=== PATIENT | male | born 1975 | race African-American/Black ===

== ENCOUNTER 2016-05-13 18:42 | Emergency (ER) | payer OTHER ==
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
[~2016-05-13 18:42] MED LIST: ACID REFLUX PO; CIPRO PO; DIAZEPAM PO; DOXYCYCLINE HY100 M1 PO; FLEXERIL; KLONOPIN1 MG PO; LORTAB 10-5001 EACH; LORTAB 10/500 T1 TAB PO; METHADONE; METHADONE HCL10 MG PO; NEURONTIN PO; NO MEDICATIONS; NORFLEX100 MG PO; PERCOCET 10/3251 TAB; PHENERGAN/CODEIN5 ML PO; PRILOSEC20 M1 PO; PROTEXIN1 KIT MM; SOMA PO; TYLENOL #3 PO; VIBRAMYCIN100 M1 PO; VOLTAREN75 MG PO; ZITHROMAX PO
== END 2016-05-13 19:30 | disposition home or self-care (01) ==
LOC: SED 18:42
DX: S16.1XXA Strain of muscle, fascia and tendon at neck level, initial encounter (principal); R03.0 Elevated blood-pressure reading, without diagnosis of hypertension; F17.210 Nicotine dependence, cigarettes, uncomplicated; Z91.040 Latex allergy status; Z88.8 Allergy status to other drugs, medicaments and biological substances; V49.40XA Driver injured in collision with unspecified motor vehicles in traffic accident, initial encounter; Y92.488 Other paved roadways as the place of occurrence of the external cause
CPT/HCPCS: 72040; 96372; 99283; J1885; J2360